=== PATIENT | female | born 1965 | race Caucasian/White ===

== ENCOUNTER → 2020-01-22 | Outpatient (CLI) | payer MEDICARE, OTHER ==
[~2020-01-22] MED LIST: ACID REDUCER 1150 MG PO; ALBU.083IS IH; ALBU90OI INH; ALBU90OI61 INH; ATOR10 PO; BUDE6HFA INH; CALCAVITD PO; CHOL10002 PO; CITA20 PO; CLARITIN10 MG PO; FERR325 PO; FISH1000 PO; FLUSAL2505 IH; Flonase 0.05% N16 GM; HYOS.125 SL; IBUP800 PO; INSDET100 SQ; INSLI100I SC; INSLI100I SUBQ; INSULANPEN; LITH300C PO; LORA10; LOSA25 PO; LOSARTAN-HCTZ1 EAC1 PO; LOSHYD100; MIRT15 PO; MULVITMIND PO; Novolog100 UNIT/2 SC; OMEP40CA12 PO; OMEPRAZOLE MAGN20 MG PO; OXYC5 PO; Omega 3 1,0001 EACH PO; POLY500 PO; RANI150 PO; TIOT18 IH; VENL75ER PO; VITAMIN D32000 UNIT PO
[2020-01-22 19:21] LABS: BASOPHILS ABSOLUTE AUTO 0.07 K/mm3 (0.00-0.23); BASOPHILS PERCENT AUTO 1 % (0-2); EOSINOPHILS ABSOLUTE AUTO 0.02 K/mm3 (0.00-0.68); EOSINOPHILS PERCENT AUTO 0 % (0-6); Hematocrit 42.7 % (33.0-51.0); IMMATURE GRAN ABSOLUTE AUTO 0.03 K/mm3 (0.00-0.10); IMMATURE GRAN PERCENT AUTO 0 % (0-1); LYMPHOCYTES ABSOLUTE AUTO 2.42 K/mm3 (0.84-5.20); LYMPHOCYTES PERCENT AUTO 26 % (21-46); MONOCYTES ABSOLUTE AUTO 0.65 K/mm3 (0.16-1.47); MONOCYTES PERCENT AUTO 7 % (4-13); Mean Corpuscular HGB 30.1 pg (26.0-34.0); Mean Corpuscular HGB Conc 32.8 g/dL (31.5-36.5); Mean Corpuscular Volume 92 fL (80-100); Mean Platelet Volume 10.8 fL (9.1-12.4); NEUTROPHILS ABSOLUTE AUTO 6.04 K/mm3 (1.96-9.15); NEUTROPHILS PERCENT AUTO 66 % (41-73); Platelet Count 225 K/mm3 (150-400); RDW Coefficient Variation 14.1 % (11.7-14.2); RDW Standard Deviation 47.6 fL (35.1-46.3); Red Blood Cell Count 4.65 M/mm3 (3.80-5.20); White Blood Cell Count 9.23 K/mm3 (4.00-11.30)
[2020-01-22 19:30] LABS: Anion Gap 5 mmol/L (6-16); Blood Urea Nitrogen 7 mg/dL (8-24); Bun/Creatinine Ratio 10.7 (12.0-20.0); CO2, Blood 28 mmol/L (21-32); Calcium, Blood 8.4 mg/dL (8.5-10.1); Chloride, Blood 101 mmol/L (98-108); Creatinine, Blood 0.65 mg/dL (0.40-1.00); Glomerular Filtration Rate >60 (60-); Glucose, Blood 406 mg/dL (70-99); Potassium, Blood 4.2 mmol/L (3.5-5.5); Sodium, Blood 134 mmol/L (136-145)
[2020-01-22 19:34] LABS: Percent Saturation 21.8 % (15.0-50.0)
== END | disposition home or self-care (01) ==
LOC: LAB SHORT 19:15 → LAB 19:15
PROVIDERS: Physician Assistant
DX: E87.1 Hypo-osmolality and hyponatremia (principal); D50.9 Iron deficiency anemia, unspecified
CPT/HCPCS: 80048; 82728; 83540; 83550; 85025

== ENCOUNTER 2022-06-26 08:50 | Day surgery (SDC) | payer MEDICARE, OTHER ==
[~2022-06-26] VITALS: Ht 162.6 cm; Wt 71.8 kg
[~2022-06-26 08:50] MED LIST changes: +CHLO25 PO; +Fibercon625 MG PO; +MONT10T PO; +PRAZ1 PO; +TRELEGY ELLIPT1 EAC1
--- NOTE | 2022-06-26 09:22 | NUR ---
06/26/22 0922 Shannan Maria CALL LIGHT WITHIN REACH.TETRACAINE IN RIGHT EYE AT 0911 AND PLEDGETT AT 0912
== END 2022-06-26 10:38 | disposition home or self-care (01) ==
LOC: ORSCSDS 08:50
PROVIDERS: Student in an Organized Health Care Education/Training Program
PROC: 08DJ3ZZ Extraction of Right Lens, Percutaneous Approach (ICD-10-PCS; principal; 2022-06-26 10:15)
DX: H25.13 Age-related nuclear cataract, bilateral (principal); E11.3299 Type 2 diabetes mellitus with mild nonproliferative diabetic retinopathy without macular edema, unspecified eye; K74.60 Unspecified cirrhosis of liver; J44.9 Chronic obstructive pulmonary disease, unspecified; F32.A Depression, unspecified; E11.9 Type 2 diabetes mellitus without complications; I10 Essential (primary) hypertension; G47.33 Obstructive sleep apnea (adult) (pediatric); F17.210 Nicotine dependence, cigarettes, uncomplicated; Z79.4 Long term (current) use of insulin; Z79.899 Other long term (current) drug therapy
CPT/HCPCS: 82947; J2250; J3010; J7040; V2632

== ENCOUNTER 2022-07-03 15:03 | Inpatient (IN) | payer MEDICARE, OTHER ==
[~2022-07-03] VITALS: Ht 162.6 cm; Wt 69.2 kg
[2022-07-03 16:13] LABS: BASOPHILS ABSOLUTE AUTO 0.05 K/mm3 (0.00-0.23); BASOPHILS PERCENT AUTO 0 % (0-2); EOSINOPHILS ABSOLUTE AUTO 0.17 K/mm3 (0.00-0.68); EOSINOPHILS PERCENT AUTO 1 % (0-6); Hematocrit 42.5 % (33.0-51.0); IMMATURE GRAN ABSOLUTE AUTO 0.12 K/mm3 (0.00-0.10); IMMATURE GRAN PERCENT AUTO 1 % (0-1); LYMPHOCYTES ABSOLUTE AUTO 1.74 K/mm3 (0.84-5.20); LYMPHOCYTES PERCENT AUTO 14 % (21-46); MONOCYTES PERCENT AUTO 6 % (4-13); Mean Corpuscular HGB 31.5 pg (26.0-34.0); Mean Corpuscular HGB Conc 32.9 g/dL (31.5-36.5); Mean Corpuscular Volume 96 fL (80-100); Mean Platelet Volume 10.7 fL (9.1-12.4); NEUTROPHILS ABSOLUTE AUTO 9.85 K/mm3 (1.96-9.15); NEUTROPHILS PERCENT AUTO 77 % (41-73); Platelet Count 214 K/mm3 (150-400); RDW Coefficient Variation 12.7 % (11.7-14.2); RDW Standard Deviation 44.6 fL (35.1-46.3); Red Blood Cell Count 4.44 M/mm3 (3.80-5.20); White Blood Cell Count 12.73 K/mm3 (4.00-11.30)
[2022-07-03 16:17] LABS: Base Excess Venous -26.3 mmol/L; Bicarbonate Venous 7.5 mmol/L (24.0-30.0); PCO2 Venous 27.1 mmHg (38-42); pH Blood Venous 6.95 (7.34-7.37)
[2022-07-03 16:47] LABS: Albumin, Blood 3.8 g/dL (3.4-5.0); Albumin/Globulin Ratio 1.1 (0.8-1.8); Bilirubin, Total 0.6 mg/dL (0.1-1.0); Bun/Creatinine Ratio 26.5 (12.0-20.0); Calcium, Blood 9.5 mg/dL (8.5-10.1); Creatinine, Blood 1.36 mg/dL (0.40-1.00); Globulin, Blood 3.4 g/dL (2.2-4.0); Potassium, Blood 6.1 mmol/L (3.5-5.5); Total Protein, Blood 7.2 g/dL (6.4-8.2)
[2022-07-03 18:25] LABS: Source, Urine Clean Catch
[2022-07-03 19:03] LABS: Glucose, Blood 628 mg/dL (70-99)
[2022-07-03 19:12] LABS: Influenza A, PCR NEGATIVE (NEGATIVE); Influenza B, PCR NEGATIVE (NEGATIVE); Resp Syncytial Virus, PCR NEGATIVE (NEGATIVE); SARS-Cov-2 (COVID-19) PCR, MMC NEGATIVE (NEGATIVE)
[2022-07-03 19:22] LABS: Bilirubin, Urine Neg (Neg); Blood, Urine 4+ (Neg); Glucose Qualitative, Urine 4+ (Neg); Ketones, Urine 4+ (Neg); Leukocyte Esterase, Urine Neg (Neg); Nitrite, Urine Neg (Neg); Protein, Urine 2+ (Neg); Urobilinogen, Urine NORM (Normal)
[2022-07-03 19:33] LABS: Color, Urine Pale Yellow (P-Yellow)
[2022-07-03 19:34] LABS: Appearance, Urine Hazy (Clear)
[2022-07-03 19:36] LABS: Bacteria Mod /hpf; Hyaline Casts 0-2 /lpf (0-2); Mucus Light (0-Heavy); Red Blood Cells, Urine 0-2 /hpf (0-2); Squamous Epithelial Cells Few /hpf (Few); White Blood Cells, Urine 0-2 /hpf (0-5)
[2022-07-03 20:38] LABS: Glucose, Blood 434 mg/dL (70-99)
[2022-07-03 21:09] LABS: Source, Urine Foley catheter
[2022-07-03 21:14] LABS: Bilirubin, Urine Neg (Neg); Blood, Urine 5+ (Neg); Glucose Qualitative, Urine 3+ (Neg); Ketones, Urine 4+ (Neg); Leukocyte Esterase, Urine Neg (Neg); Nitrite, Urine Neg (Neg); Protein, Urine 2+ (Neg); Urobilinogen, Urine NORM (Normal)
[2022-07-03 21:23] LABS: Appearance, Urine Hazy (Clear); Color, Urine Pale Yellow (P-Yellow)
[2022-07-03 21:26] LABS: Amorphous Light (0-Heavy); Bacteria Many /hpf; Hyaline Casts 0-2 /lpf (0-2); Mucus Light (0-Heavy); Squamous Epithelial Cells Rare /hpf (Few); White Blood Cells, Urine 0-2 /hpf (0-5)
[2022-07-03 22:05] LABS: U Amphetamine Screen Not Detected; U Barbituate Screen Not Detected; U Benzodiazapine Screen Not Detected; U Buprenorphine Screen Not Detected; U Cannabinoids Screen DETECTED; U Cocaine Screen Not Detected; U Methadone Screen Not Detected; U Methamphetamine Screen Not Detected; U Opiates Screen Not Detected; U Oxycodone Screen Not Detected; U Phencyclidine Screen Not Detected; U Propoxyphene Screen Not Detected
[2022-07-03 23:07] LABS: Bun/Creatinine Ratio 28.8 (12.0-20.0); Calcium, Blood 8.1 mg/dL (8.5-10.1); Creatinine, Blood 1.11 mg/dL (0.40-1.00); Potassium, Blood 4.7 mmol/L (3.5-5.5)
--- NOTE | 2022-07-03 23:33 | NUR ---
PT ARRIVED TO ICU AT 2200. MD TO BEDSIDE FOR ASSESSMENT. PT IN SINUS TACK WSITH A HR OF 130-140S. PT SLIGHTLY CONFUSED BUT ABLE TO FOLLOW COMMANDS AND NO IMPULSIVE. INULIN GTT BEING MANAGED PER PROTOCOL. BICARB ONE TIME DOSE GIVEN AND GTT STARTED PER ORDER. PT PASSED SWALLOW SCREEN. PT PLEASANT AND ASLEEP IN BED.
--- NOTE | 2022-07-04 04:11 | NUR ---
PT NEURO STATUS WITHOUT CHANGES. CARDIAC IMPROVING. HR DECREASING NOW 100-110S. RESP RATE SLOWING DOWN TO LOW 20S. AWAITING MORNING LAB RESULTS. CBGS TRENDING DOWN. INSULIN GTT AT 3 UNITS/HR. D5 STARTED THIS AM. PT STILL ANXIOUS INTERMITTENTLY BUT ABLE TO CALM PT DOWN WITH DISTRACTION. ALFARO DRAINING WELL, SLIGHT LEAKING PLACED NEW STAT LOCK SO THAT ALFARO DOESNT KINK. PT INDEPENDENT WITH TURNING. VSS. PT COMFORTABLY SLEEPING IN BED. BED ALARM ON.
[2022-07-04 04:55] LABS: BASOPHILS ABSOLUTE AUTO 0.01 K/mm3 (0.00-0.23); BASOPHILS PERCENT AUTO 0 % (0-2); EOSINOPHILS PERCENT AUTO 0 % (0-6); Hematocrit 31.9 % (33.0-51.0); Hemoglobin 11.5 g/dL (11.5-16.0); IMMATURE GRAN ABSOLUTE AUTO 0.03 K/mm3 (0.00-0.10); IMMATURE GRAN PERCENT AUTO 0 % (0-1); LYMPHOCYTES PERCENT AUTO 27 % (21-46); MONOCYTES ABSOLUTE AUTO 0.65 K/mm3 (0.16-1.47); MONOCYTES PERCENT AUTO 9 % (4-13); Mean Corpuscular HGB 31.1 pg (26.0-34.0); Mean Corpuscular HGB Conc 36.1 g/dL (31.5-36.5); NEUTROPHILS ABSOLUTE AUTO 4.61 K/mm3 (1.96-9.15); NEUTROPHILS PERCENT AUTO 63 % (41-73); Platelet Count 156 K/mm3 (150-400); RDW Coefficient Variation 12.5 % (11.7-14.2); RDW Standard Deviation 39.6 fL (35.1-46.3)
[2022-07-04 05:18] LABS: Mean Corpuscular Volume 86 fL (80-100)
[2022-07-04 05:23] LABS: Albumin, Blood 2.8 g/dL (3.4-5.0); Bilirubin, Total 0.5 mg/dL (0.1-1.0); Bun/Creatinine Ratio 29.8 (12.0-20.0); Calcium, Blood 8.3 mg/dL (8.5-10.1); Creatinine, Blood 0.84 mg/dL (0.40-1.00); Globulin, Blood 2.7 g/dL (2.2-4.0); Potassium, Blood 3.7 mmol/L (3.5-5.5); Total Protein, Blood 5.5 g/dL (6.4-8.2)
[2022-07-04] MEDS ORDERED: Insulin Glargine-Yfg SC (06:11)
[2022-07-04] MEDS ORDERED: ALBU3IS INH (06:12)
[2022-07-04] MEDS ORDERED: ATORVASTATIN CA80 M1 PO (06:14)
[2022-07-04] MEDS ORDERED: Fibercon625 MG PO (06:15)
[2022-07-04] MEDS ORDERED: LOSARTAN 100 MG PO (06:16)
[2022-07-04] MEDS ORDERED: MIRT30ST PO (06:18)
[2022-07-04] MEDS ORDERED: OMEP20ER PO (06:19)
--- NOTE | 2022-07-04 10:15 | NUR ---
PT A/O X4. PT SPEAKS IN CHILD-LIKE TONE AND SENTENCES. COOPERATIVE WITH CARE. INSULIN GTT AND D5 BICARB. WILL BE TRANSITIONING TO SLIDING SCALE INSULIN NOW THAT PT TOLERATED BREAKFAST. UPDATED AND ABLE TO SPEAK TO PT ON THE PHONE.
[2022-07-04 10:58] LABS: Bun/Creatinine Ratio 24.3 (12.0-20.0); Calcium, Blood 8.4 mg/dL (8.5-10.1); Creatinine, Blood 0.82 mg/dL (0.40-1.00); Potassium, Blood 3.2 mmol/L (3.5-5.5)
--- NOTE | 2022-07-04 11:58 | NUR ---
CALLED DR. CARRASCO ABOUT POTASSIUM LEVEL. DR. Wolfe ANSWERED AND WILL REVIEW.
--- NOTE | 2022-07-04 17:03 | NUR ---
SUMMARY PT A/O X4. PT IS CHILD-LIKE AT TIMES. MAKES NEEDS KNOWN, SOMETIMES USES CALL LIGHT, SOMETIMES CALLS OUT. OFF INSULIN GTT AND D5 SINCE THIS AM. TOLERATING PO WELL, NO N/V TODAY. PT ABLE TO MOVE HERSELF INDEP IN BED. DOWNGRADED TO MEDICAL STATUS TODAY. PT HAS SPOKEN WITH FAMILY ON THE PHONE TODAY. NO SIGN OF DISTRESS.
[2022-07-04 17:04] LABS: Bun/Creatinine Ratio 18.2 (12.0-20.0); Calcium, Blood 9.1 mg/dL (8.5-10.1); Creatinine, Blood 0.77 mg/dL (0.40-1.00); Potassium, Blood 3.2 mmol/L (3.5-5.5)
[2022-07-04 20:59] LABS: Bun/Creatinine Ratio 20.7 (12.0-20.0); Calcium, Blood 8.8 mg/dL (8.5-10.1); Creatinine, Blood 0.63 mg/dL (0.40-1.00); Potassium, Blood 3.4 mmol/L (3.5-5.5)
--- NOTE | 2022-07-04 21:16 | NUR ---
GAVE REPORT TO NURSE TAKING PT ON MEDICAL FLOOR. TRANSFERED PT AT 2100. 2100 MEDS GIVEN BEFORE TRANSFER. PT VS STABLE.
[2022-07-05 03:34] LABS: Bun/Creatinine Ratio 17.4 (12.0-20.0); Calcium, Blood 9.5 mg/dL (8.5-10.1); Creatinine, Blood 0.63 mg/dL (0.40-1.00); Potassium, Blood 3.6 mmol/L (3.5-5.5)
--- NOTE | 2022-07-05 07:00 | NUR ---
Rn summary: Patient is alert and oriented. Pt is child like but cooperative. Pt has been up to the bathroom a few times for stools. Wearing a pull up. Pt has a stephens cath with ellow urine. Patient hopes to be DC today. Taking fluids well. Has reted well. Call light in reach. Bed alarm on.
[2022-07-05 08:50] LABS: Bun/Creatinine Ratio 14.8 (12.0-20.0); Calcium, Blood 9.4 mg/dL (8.5-10.1); Creatinine, Blood 0.68 mg/dL (0.40-1.00); Potassium, Blood 3.6 mmol/L (3.5-5.5)
[2022-07-05] MEDS ORDERED: BASAGLAR K100 UNIT/1 SC (12:11)
[2022-07-05] MEDS ORDERED: HUMALOG KW100 UNIT/1 SC (12:11)
--- NOTE | 2022-07-05 15:22 | NUR ---
PT DISCHARGED FROM THE UNIT. IVS REMOVED. DISCHARGE INSTRUCTIONS REVIEWED. MEDICATIONS FAXED TO PHARMACY. ALFARO REMOVED AND PT WAS ABLE TO VOID. INSTRUCTED TO FOLLOW UP WITH PRIMARY CARE AND ENDOCRONOLOGY. PT LEFT UNIT VIA WHEEL CHAIR.
== END 2022-07-05 14:05 | disposition home or self-care (01) | DRG 638 ==
LOC: ER 15:03 → ICUE 20:36 → ICUW 20:36 → ICUE 20:47 → MEDS 07-04 21:10
PROVIDERS: Family Medicine Adult Medicine; Physician Assistant; Student in an Organized Health Care Education/Training Program; ADMIT Internal Medicine
DX: E11.10 Type 2 diabetes mellitus with ketoacidosis without coma (principal); E87.1 Hypo-osmolality and hyponatremia; J44.1 Chronic obstructive pulmonary disease with (acute) exacerbation; G93.49 Other encephalopathy; F32.A Depression, unspecified; G47.30 Sleep apnea, unspecified; K74.60 Unspecified cirrhosis of liver; G43.909 Migraine, unspecified, not intractable, without status migrainosus; G47.00 Insomnia, unspecified; F17.200 Nicotine dependence, unspecified, uncomplicated; E86.0 Dehydration; F10.20 Alcohol dependence, uncomplicated; Z79.899 Other long term (current) drug therapy; Z79.4 Long term (current) use of insulin; Z99.81 Dependence on supplemental oxygen; Z90.89 Acquired absence of other organs; Z98.51 Tubal ligation status; Z98.890 Other specified postprocedural states; Z91.018 Allergy to other foods
CPT/HCPCS: 0241U; 36415; 70450; 71045; 74177; 80048; 80053; 81001; 82803; 82947; 83690; 83735; 84100; 84484; 85025; 87086; 93005; 93010; 94640; 94664; 96361; 96374; 96375; 99285-25; A9270; C9113; J1650; J1815; J2060; J2405; J7030; J7040; J7050; J7070; Q9967

== ENCOUNTER 2022-12-18 07:05 | Day surgery (SDC) | payer MEDICARE, OTHER ==
[~2022-12-18] VITALS: Ht 162.6 cm; Wt 69.0 kg
[~2022-12-18 07:05] MED LIST changes: +ALBU3IS INH; +ATORVASTATIN CA80 M1 PO; +BASAGLAR K100 UNIT/1 SC; +HUMALOG KW100 UNIT/1 SC; +Insulin Glargine-Yfg SC; +LOSARTAN 100 MG PO; +MIRT30ST PO; +OMEP20ER PO
[2022-12-18] MEDS ORDERED: TOUJEO MAX300 UNIT/2 INJ (07:38)
--- NOTE | 2022-12-18 07:45 | NUR ---
12/18/22 0745 Shannan Maira CALL LIGHT WITHIN REACH. TETRACAINE IN AT 0735 IN LEFT EYE AND PLEDGETT IN AT 0737
--- NOTE | 2022-12-18 08:58 | NUR ---
12/18/22 0858 JOB ARMENDARIZ LUNGS ARE WHEEZY, PT WAS WHEEZY PRIOR TO SURGERY. PT HAS ASTHMA AND COPD. SHE STATES THAT SHE WILL USE HER UPDRAFT WHEN SHE GOES HOME
== END 2022-12-18 09:03 | disposition home or self-care (01) ==
LOC: ORSCSDS 07:05
PROVIDERS: Student in an Organized Health Care Education/Training Program
PROC: 08DK3ZZ Extraction of Left Lens, Percutaneous Approach (ICD-10-PCS; principal; 2022-12-18 08:30)
DX: E11.36 Type 2 diabetes mellitus with diabetic cataract (principal); H25.12 Age-related nuclear cataract, left eye; F32.A Depression, unspecified; I10 Essential (primary) hypertension; G47.33 Obstructive sleep apnea (adult) (pediatric); K74.60 Unspecified cirrhosis of liver; J44.9 Chronic obstructive pulmonary disease, unspecified; F17.210 Nicotine dependence, cigarettes, uncomplicated; Z79.4 Long term (current) use of insulin; Z79.899 Other long term (current) drug therapy
CPT/HCPCS: 82947; J2001; J2250; J3010; J7040; V2632

== ENCOUNTER 2023-05-19 08:42 | Emergency (ER) | payer MEDICARE, OTHER ==
[~2023-05-19] VITALS: Ht 162.6 cm; Wt 67.6 kg
[~2023-05-19 08:42] MED LIST changes: +BUSPIRONE HCL7.5 M2 PO; +LOSARTAN-HCTZ1 EACH PO; +NOVOLOG100 UNIT/2; +THERA-D2000 UNIT PO; +TOUJEO MAX300 UNIT/2 INJ
[2023-05-19 09:43] LABS: BASOPHILS ABSOLUTE AUTO 0.03 K/mm3 (0.00-0.23); BASOPHILS PERCENT AUTO 1 % (0-2); Hematocrit 40.5 % (33.0-51.0); Hemoglobin 14.3 g/dL (11.5-16.0); LYMPHOCYTES ABSOLUTE AUTO 0.51 K/mm3 (0.84-5.20); LYMPHOCYTES PERCENT AUTO 9 % (21-46); MONOCYTES PERCENT AUTO 10 % (4-13); Mean Corpuscular HGB Conc 35.3 g/dL (31.5-36.5); Mean Corpuscular Volume 88 fL (80-100); Mean Platelet Volume 10.7 fL (9.1-12.4); Platelet Count 171 K/mm3 (150-400); RDW Coefficient Variation 12.8 % (11.7-14.2); RDW Standard Deviation 41.2 fL (35.1-46.3); Red Blood Cell Count 4.61 M/mm3 (3.80-5.20); White Blood Cell Count 5.97 K/mm3 (4.00-11.30)
[2023-05-19 09:53] LABS: EOSINOPHILS PERCENT AUTO 0 % (0-6); IMMATURE GRAN ABSOLUTE AUTO 0.01 K/mm3 (0.00-0.10); IMMATURE GRAN PERCENT AUTO 0 % (0-1); NEUTROPHILS ABSOLUTE AUTO 4.82 K/mm3 (1.96-9.15); NEUTROPHILS PERCENT AUTO 81 % (41-73)
[2023-05-19 10:00] VITALS: BP 177/65
[2023-05-19 10:05] LABS: Albumin, Blood 3.3 g/dL (3.4-5.0); Bilirubin, Total 0.5 mg/dL (0.1-1.0); Bun/Creatinine Ratio 22.3 (12.0-20.0); Calcium, Blood 8.8 mg/dL (8.5-10.1); Creatinine, Blood 0.54 mg/dL (0.40-1.00); Globulin, Blood 3.2 g/dL (2.2-4.0); Total Protein, Blood 6.5 g/dL (6.4-8.2)
[2023-05-19 10:30] LABS: Source, Urine Voided
[2023-05-19 10:36] LABS: Appearance, Urine Clear (Clear); Bilirubin, Urine Neg (Neg); Blood, Urine Neg (Neg); Color, Urine Yellow (P-Yellow); Glucose Qualitative, Urine 3+ (Neg); Ketones, Urine 4+ (Neg); Leukocyte Esterase, Urine Neg (Neg); Nitrite, Urine Neg (Neg); Protein, Urine Neg (Neg); Specific Gravity, Urine 1.025 (1.003-1.022); Urobilinogen, Urine NORM (Normal)
[2023-05-19 11:01] LABS: Influenza A, PCR NEGATIVE (NEGATIVE); Influenza B, PCR NEGATIVE (NEGATIVE); Resp Syncytial Virus, PCR NEGATIVE (NEGATIVE); SARS-Cov-2 (COVID-19) PCR, MMC NEGATIVE (NEGATIVE)
[2023-05-19] MEDS ORDERED: ONDA4ODT MM (11:23)
== END 2023-05-19 11:00 | disposition home or self-care (01) ==
LOC: ER 08:42
PROVIDERS: Emergency Medicine
DX: K52.9 Noninfective gastroenteritis and colitis, unspecified (principal); E10.9 Type 1 diabetes mellitus without complications; G47.30 Sleep apnea, unspecified; I10 Essential (primary) hypertension; J44.9 Chronic obstructive pulmonary disease, unspecified; G47.00 Insomnia, unspecified; F17.210 Nicotine dependence, cigarettes, uncomplicated; Z91.018 Allergy to other foods; Z79.4 Long term (current) use of insulin; Z79.899 Other long term (current) drug therapy
CPT/HCPCS: 0241U; 80053; 81003; 81025; 83690; 85025; 93005; 93010; 96374; 99284-25; J2405; J7030

== ENCOUNTER 2023-05-22 08:52 | Inpatient (IN) | payer MEDICARE, OTHER ==
[~2023-05-22] VITALS: Ht 162.6 cm; Wt 65.8 kg
[~2023-05-22 08:52] MED LIST changes: +ONDA4ODT MM
[2023-05-22 09:46] LABS: Hematocrit 37.6 % (33.0-51.0); Hemoglobin 13.3 g/dL (11.5-16.0); Mean Corpuscular HGB 30.5 pg (26.0-34.0); Mean Corpuscular HGB Conc 35.4 g/dL (31.5-36.5); Mean Corpuscular Volume 86 fL (80-100); Mean Platelet Volume 10.3 fL (9.1-12.4); Platelet Count 178 K/mm3 (150-400); RDW Coefficient Variation 12.5 % (11.7-14.2); RDW Standard Deviation 39.7 fL (35.1-46.3); Red Blood Cell Count 4.36 M/mm3 (3.80-5.20); White Blood Cell Count 7.57 K/mm3 (4.00-11.30)
[2023-05-22 10:11] LABS: BAND PERCENT MAN 21 % (0-8); BASOPHILS ABSOLUTE MAN 0.07 K/mm3 (0.00-0.23); BASOPHILS PERCENT MAN 1 % (0-2); EOSINOPHILS PERCENT MAN 0 % (0-6); LYMPHOCYTES ABSOLUTE MAN 0.83 K/mm3 (0.84-5.20); LYMPHOCYTES PERCENT MAN 11 % (21-46); MONOCYTES ABSOLUTE MAN 1.96 K/mm3 (0.16-1.47); MONOCYTES PERCENT MAN 26 % (4-13); NEUTROPHILS ABSOLUTE MAN 4.69 K/mm3 (1.96-9.15); SEG NEUTROPHILS PERCENT MAN 41 % (41-73); TOTAL CELLS COUNTED 100
[2023-05-22 10:39] LABS: Albumin, Blood 2.7 g/dL (3.4-5.0); Albumin/Globulin Ratio 0.9 (0.8-1.8); Bilirubin, Direct 0.1 mg/dL (0.0-0.3); Bilirubin, Indirect 0.4 mg/dL (0.1-0.7); Bilirubin, Total 0.5 mg/dL (0.1-1.0); Bun/Creatinine Ratio 20.9 (12.0-20.0); Calcium, Blood 8.6 mg/dL (8.5-10.1); Creatinine, Blood 0.48 mg/dL (0.40-1.00); Globulin, Blood 3.1 g/dL (2.2-4.0); Magnesium, Blood 1.9 mg/dL (1.6-2.4); Total Protein, Blood 5.8 g/dL (6.4-8.2)
[2023-05-22 11:07] LABS: Source, Urine Clean Catch
[2023-05-22 11:15] LABS: Bilirubin, Urine Neg (Neg); Blood, Urine Neg (Neg); Glucose Qualitative, Urine Neg (Neg); Ketones, Urine 3+ (Neg); Leukocyte Esterase, Urine Neg (Neg); Nitrite, Urine Neg (Neg); Protein, Urine Neg (Neg); Specific Gravity, Urine 1.005 (1.003-1.022); Urobilinogen, Urine NORM (Normal); pH, Urine 6.5 (5.0-8.0)
[2023-05-22 11:16] LABS: Appearance, Urine Clear (Clear); Color, Urine Yellow (P-Yellow)
[2023-05-22 12:39] LABS: Adenovirus F 40/41 Not Detected (NOT DETECT); Astrovirus Not Detected (NOT DETECT); Campylobacter Sp Not Detected (NOT DETECT); Cryptosporidium Not Detected (NOT DETECT); Cyclospora Cayetanensis Not Detected (NOT DETECT); E. Coli O157 Not Detected (NOT DETECT); Entamoeba Histolytica Not Detected (NOT DETECT); Enteroaggregative E. coli-EAEC Not Detected (NOT DETECT); Enteropathogenic E. coli-EPEC Detected (NOT DETECT); Enterotoxigenic E. coli-ETEC Not Detected (NOT DETECT); Giardia Lamblia Not Detected (NOT DETECT); Norovirus GI/GII Not Detected (NOT DETECT); Plesiomonas Shigelloides Not Detected (NOT DETECT); Rotavirus A Not Detected (NOT DETECT); Salmonella Sp Detected (NOT DETECT); Sapovirus Not Detected (NOT DETECT); Shiga Toxin-prod E. coli-STEC Not Detected (NOT DETECT); Shigella/Enteroin E. coli-EIEC Not Detected (NOT DETECT); Vibrio Cholerae Not Detected (NOT DETECT); Vibrio Sp Not Detected (NOT DETECT); Yersinia Enterocolitica Not Detected (NOT DETECT)
[2023-05-22 14:18] VITALS: BP 126/91
--- NOTE | 2023-05-22 14:36 | NUR ---
PT ARRIVED TO UNIT FROM ER. DENIES PAIN AND NAUSEA AT THIS TIME. IVF AND POTASSIUM INFUSING AT THIS TIME FROM ER. PT GIVEN CALL LIGHT EDUCATED ON USE. PT DENIES FURTHER NEEDS AT THIS TIME AND WILL CALL IF SHE NEEDS ANYTHING.
--- NOTE | 2023-05-22 17:32 | NUR ---
SHIFT SUMMARY NO ACUTE CHANGES SINCE ARRIVAL TO FLOOR. PT ABLE TO INDEPENDENTLY AMBULATE TO BATHROOM. 1 LOOSE STOOL SINCE ARRIVAL TO FLOOR. NO PAIN WHEN NOT HAVING BOWEL MOVEMENTS. REPORTS SOME NAUSEA, MEDICATION PER EMAR. PT VERY ANXIOUS, TEARFUL AT TIMES. PT REFUSED TO TAKE INSULIN PROVIDED BY HOSPITAL AND TOOK 1 UNIT OF HER OWN INSULIN PEN. ATTEMPTED TO EDUCATE PATIENT ON USING MEDICATIONS HERE SO WE CAN SCAN THEM AND TRACK. PT DECLINED EDUCATION AND STATED SHE WILL CONTINUE TO USE HER OWN.
--- NOTE | 2023-05-22 18:32 | NUR ---
PURPLE BIC BULLDOZER PRESS OPERATOR PLACED IN PATIENTS DRAWER, REEDUCATED ON NON SMOKING FACILTY. PT REPORTS SHE WILL NOT SMOKE IN THE ROOM SHE KNOWS THAT OXYGEN IS FLAMMABLE.
[2023-05-22 19:16] VITALS: BP 163/69
[2023-05-23 03:26] VITALS: BP 149/60
[2023-05-23 03:48] LABS: Hematocrit 33.5 % (33.0-51.0); Hemoglobin 12.1 g/dL (11.5-16.0); Mean Corpuscular HGB 30.9 pg (26.0-34.0); Mean Corpuscular HGB Conc 36.1 g/dL (31.5-36.5); Mean Corpuscular Volume 86 fL (80-100); Mean Platelet Volume 10.1 fL (9.1-12.4); Platelet Count 173 K/mm3 (150-400); RDW Coefficient Variation 12.5 % (11.7-14.2); RDW Standard Deviation 38.9 fL (35.1-46.3); Red Blood Cell Count 3.91 M/mm3 (3.80-5.20); White Blood Cell Count 6.77 K/mm3 (4.00-11.30)
[2023-05-23 04:07] LABS: Bun/Creatinine Ratio 7.5 (12.0-20.0); Calcium, Blood 7.5 mg/dL (8.5-10.1); Creatinine, Blood 0.53 mg/dL (0.40-1.00); Potassium, Blood 2.5 mmol/L (3.5-5.5)
--- NOTE | 2023-05-23 04:25 | NUR ---
SHIFT SUMMARY PT HAD MULTIPLE LIQUID STOOLS T/O NIGHT. COMPLAINED OF N/V, VOMITTED TWICE DURING THE NIGHT. MEDICATED PER EMAR. RT SET UP CPAP, PT WORE CPAP ALL NIGHT. ABLE TO AMBULATE TO THE BATHRROM BY SELF. NEED ASST TO GET BACK INTO BED AND PUT CPAP BACK ON. NIGHT TIME DOSE OF INSULIN REFUSED, ORDER OBTAINED TO START HOME REGIMEN OF MORNING LONG ACTING INSULIN. NO OTHER CONCERNS AT THIS TIME. CALL LIGHT WITHIN REACH.
[2023-05-23 05:17] LABS: BASOPHILS PERCENT MAN 0 % (0-2); EOSINOPHILS PERCENT MAN 0 % (0-6); LYMPHOCYTES ABSOLUTE MAN 1.48 K/mm3 (0.84-5.20); LYMPHOCYTES PERCENT MAN 22 % (21-46); MONOCYTES ABSOLUTE MAN 1.15 K/mm3 (0.16-1.47); MONOCYTES PERCENT MAN 17 % (4-13); MYELOCYTE ABSOLUTE MAN 0.13 K/mm3 (0.00-0.00); MYELOCYTE PERCENT MAN 2 % (0-0); NEUTROPHILS ABSOLUTE MAN 3.99 K/mm3 (1.96-9.15); SEG NEUTROPHILS PERCENT MAN 59 % (41-73); TOTAL CELLS COUNTED 100
[2023-05-23 07:29] VITALS: BP 166/72
--- NOTE | 2023-05-23 13:26 | NUR ---
PT REPORTS TOLERATING LUNCH TODAY. SHE REPORTED SLIGHT NAUSEA WHEN STARTING LUNCH THAT QUICKLY RESOLVED. REPORTS FEELING MUCH BETTER AFTER BEING ABLE TO NAP THIS MORNING. MOTHER BROUGHT IN SOME OF HER PERSONAL BELONGINGS WHICH HAS HELPED HER ANXIETY.
[2023-05-23 14:25] VITALS: BP 145/69
--- NOTE | 2023-05-23 17:02 | NUR ---
SHIFT SUMMARY PT REPORTS FEELING BETTER TODAY THAN YESTERDAY, HER NAUSEA HAS IMPROVED AND SHE IS ABLE TO TOLERATE SOME CLEAR LIQUIDS. BOWEL MOVEMENTS HAVE SLOWED DOWN AND SHE DENIES PAIN WITH BOWEL MOVEMENTS. PT IND IN ROOM NO WEAKNESS WITH AMBULATION. SHE REMAINS ANXIOUS, TEARFUL AT TIMES. BUT MOOOD IMPROVED AFTER FAMILY ASH BELONGINGS IN.
[2023-05-23 19:56] VITALS: BP 142/76
[2023-05-24 02:28] VITALS: BP 147/69
[2023-05-24 04:38] LABS: Bun/Creatinine Ratio 3.6 (12.0-20.0); Calcium, Blood 7.8 mg/dL (8.5-10.1); Creatinine, Blood 0.56 mg/dL (0.40-1.00); Potassium, Blood 2.7 mmol/L (3.5-5.5)
[2023-05-24 07:22] VITALS: BP 150/72
[2023-05-24 14:55] VITALS: BP 158/79
--- NOTE | 2023-05-24 16:32 | NUR ---
SHIFT SUMMARY PT RECEIVED ORAL DOSE + IV DOSE OF POTASSIUM TODAY. REPEAT LABS ORDERED. ALERT, ORIENTED, AND INDEPENDENT IN ROOM AND HALLWAY. TOLERATING ADA DIET WITH NO N/V. STILL REPORTING INTERMITTENT DIARRHEA. POSSIBLE DISCHARGE HOME TOMORROW IF LABS ARE WITHIN PARAMETERS. CALL LIGHT WITHIN REACH.
[2023-05-24] MEDS ORDERED: NICO21TP TOP (17:41)
[2023-05-24] MEDS ORDERED: VISBIOME 112.51 EACH PO (17:43)
[2023-05-24] MEDS ORDERED: CIPR500 PO (17:43)
--- NOTE | 2023-05-24 18:19 | NUR ---
DISCHARGE PT EDUCATED ON AND RECEIVED PRINTED DC INSTRUCTIONS. NEW RX LIST FAXED TO [facility] PER PT REQUEST. IV DC'D. TELE BOX RETURNED TO PCU. ALL PERSONAL BELONGINGS GATHERED AND TAKEN HOME BY PT. PT PICKED UP BY MOTHER.
== END 2023-05-24 18:21 | disposition home or self-care (01) | DRG 372 ==
LOC: ER 08:52 → SURS 08:53
PROVIDERS: Student in an Organized Health Care Education/Training Program; ADMIT Family Medicine
DX: A02.0 Salmonella enteritis (principal); E87.1 Hypo-osmolality and hyponatremia; E86.0 Dehydration; E87.6 Hypokalemia; B96.20 Unspecified Escherichia coli [E. coli] as the cause of diseases classified elsewhere; F32.A Depression, unspecified; Z66 Do not resuscitate; J44.9 Chronic obstructive pulmonary disease, unspecified; G47.30 Sleep apnea, unspecified; I10 Essential (primary) hypertension; E10.9 Type 1 diabetes mellitus without complications; K70.31 Alcoholic cirrhosis of liver with ascites; G43.909 Migraine, unspecified, not intractable, without status migrainosus; F17.210 Nicotine dependence, cigarettes, uncomplicated; Z98.51 Tubal ligation status; Z79.899 Other long term (current) drug therapy; Z91.018 Allergy to other foods; Z79.4 Long term (current) use of insulin; Z90.89 Acquired absence of other organs; Z87.39 Personal history of other diseases of the musculoskeletal system and connective tissue; Z98.890 Other specified postprocedural states; Z99.89 Dependence on other enabling machines and devices
CPT/HCPCS: 36415; 74177; 80048; 80076; 81003; 82947; 83690; 83735; 84132; 85025; 87507; 94640; 94660; 94664; 94760; 94762; 96361; 96365-59; 96366; 96367; 96368; 96375; 96376; 99284-25; A9270; G0378; J0744; J1200; J1815; J2405; J2765; J3475; J3480; J7030; J7050; J7120; Q9967

== ENCOUNTER → 2023-09-21 | Outpatient (CLI) | payer MEDICARE, OTHER ==
[~2023-09-21] MED LIST changes: +CIPR500 PO; +NICO21TP TOP; +VISBIOME 112.51 EACH PO
[2023-09-21 17:49] LABS: Adenovirus F 40/41 Not Detected (NOT DETECT); Astrovirus Not Detected (NOT DETECT); Campylobacter Sp Not Detected (NOT DETECT); Cryptosporidium Not Detected (NOT DETECT); Cyclospora Cayetanensis Not Detected (NOT DETECT); E. Coli O157 Not Detected (NOT DETECT); Entamoeba Histolytica Not Detected (NOT DETECT); Enteroaggregative E. coli-EAEC Not Detected (NOT DETECT); Enteropathogenic E. coli-EPEC Not Detected (NOT DETECT); Enterotoxigenic E. coli-ETEC Not Detected (NOT DETECT); Giardia Lamblia Not Detected (NOT DETECT); Norovirus GI/GII Not Detected (NOT DETECT); Plesiomonas Shigelloides Not Detected (NOT DETECT); Rotavirus A Not Detected (NOT DETECT); Salmonella Sp Not Detected (NOT DETECT); Sapovirus Not Detected (NOT DETECT); Shiga Toxin-prod E. coli-STEC Not Detected (NOT DETECT); Shigella/Enteroin E. coli-EIEC Not Detected (NOT DETECT); Vibrio Cholerae Not Detected (NOT DETECT); Vibrio Sp Not Detected (NOT DETECT); Yersinia Enterocolitica Not Detected (NOT DETECT)
== END ==
LOC: LAB 13:45 → LAB SHORT 13:45
PROVIDERS: Family Medicine
DX: K52.9 Noninfective gastroenteritis and colitis, unspecified (principal)
CPT/HCPCS: 87507

== ENCOUNTER → 2024-03-25 | Outpatient (CLI) | payer MEDICARE, OTHER ==
[~2024-03-25] MED LIST changes: +ASPI81CH PO; +CLOP75 PO; +FISH OIL 1,0001 EA10 PO; +GABA300 PO; +LOSA50 PO; +METO50ER PO; +PANT20 PO; +PROBIOTIC1 EA13 PO; -TRELEGY ELLIPT1 EAC1; +TRELEGY ELLIPT1 EAC1 INH; +[UNRECOGNIZED DRUG - CODE] MT
[2024-03-27 23:56] LABS: PANCREATIC ELASTASE,FECAL <10 ug/g (>=100)
== END ==
LOC: LAB 15:07 → LAB SHORT 15:07 → LAB FUT 03-23 11:00
PROVIDERS: Physician Assistant
DX: R63.4 Abnormal weight loss (principal); R10.9 Unspecified abdominal pain; R19.4 Change in bowel habit
CPT/HCPCS: 82653

== ENCOUNTER → 2025-02-26 | Outpatient (CLI) | payer MEDICARE, OTHER ==
[2025-02-26 10:31] LABS: BASOPHILS ABSOLUTE AUTO 0.08 K/mm3 (0.00-0.23); BASOPHILS PERCENT AUTO 1 % (0-2); EOSINOPHILS ABSOLUTE AUTO 0.23 K/mm3 (0.00-0.68); EOSINOPHILS PERCENT AUTO 2 % (0-6); Hematocrit 36.8 % (33.0-51.0); Hemoglobin 12.1 g/dL (11.5-16.0); IMMATURE GRAN ABSOLUTE AUTO 0.04 K/mm3 (0.00-0.10); IMMATURE GRAN PERCENT AUTO 0 % (0-1); LYMPHOCYTES ABSOLUTE AUTO 2.78 K/mm3 (0.84-5.20); LYMPHOCYTES PERCENT AUTO 24 % (21-46); MONOCYTES ABSOLUTE AUTO 0.77 K/mm3 (0.16-1.47); MONOCYTES PERCENT AUTO 7 % (4-13); Mean Corpuscular HGB 26.2 pg (26.0-34.0); Mean Corpuscular HGB Conc 32.9 g/dL (31.5-36.5); Mean Corpuscular Volume 80 fL (80-100); Mean Platelet Volume 10.3 fL (9.1-12.4); NEUTROPHILS PERCENT AUTO 67 % (41-73); Platelet Count 260 K/mm3 (150-400); RDW Coefficient Variation 16.5 % (11.7-14.2); RDW Standard Deviation 47.1 fL (35.1-46.3); Red Blood Cell Count 4.61 M/mm3 (3.80-5.20)
[2025-02-26 10:50] LABS: Albumin, Blood 3.4 g/dL (3.4-5.0); Bilirubin, Total 0.3 mg/dL (0.1-1.0); Bun/Creatinine Ratio 6.4 (12.0-20.0); Calcium, Blood 9.2 mg/dL (8.5-10.1); Creatinine, Blood 0.78 mg/dL (0.40-1.00); Globulin, Blood 3.5 g/dL (2.2-4.0); Potassium, Blood 4.1 mmol/L (3.5-5.5); Thyroid Stimulating Hormone 2.701 uIU/mL (0.360-4.800); Total Protein, Blood 6.9 g/dL (6.4-8.2)
== END | disposition home or self-care (01) ==
LOC: LAB SHORT 10:16 → LAB 10:16
PROVIDERS: Physician Assistant
DX: E10.65 Type 1 diabetes mellitus with hyperglycemia (principal); R53.83 Other fatigue; R55 Syncope and collapse
CPT/HCPCS: 80053; 83880; 84443; 84484; 85025

== ENCOUNTER 2025-09-10 17:02 | Emergency (ER) | payer MEDICARE, OTHER ==
[~2025-09-10] VITALS: Ht 157.5 cm; Wt 59.0 kg
[2025-09-10 17:44] LABS: BASOPHILS ABSOLUTE AUTO 0.08 K/mm3 (0.00-0.23); BASOPHILS PERCENT AUTO 1 % (0-2); EOSINOPHILS ABSOLUTE AUTO 0.28 K/mm3 (0.00-0.68); EOSINOPHILS PERCENT AUTO 2 % (0-6); Hematocrit 45.8 % (33.0-51.0); Hemoglobin 15.0 g/dL (11.5-16.0); IMMATURE GRAN ABSOLUTE AUTO 0.06 K/mm3 (0.00-0.10); IMMATURE GRAN PERCENT AUTO 1 % (0-1); LYMPHOCYTES ABSOLUTE AUTO 4.66 K/mm3 (0.84-5.20); LYMPHOCYTES PERCENT AUTO 40 % (21-46); MONOCYTES ABSOLUTE AUTO 1.03 K/mm3 (0.16-1.47); MONOCYTES PERCENT AUTO 9 % (4-13); Mean Corpuscular HGB Conc 32.8 g/dL (31.5-36.5); Mean Corpuscular Volume 89 fL (80-100); NEUTROPHILS ABSOLUTE AUTO 5.65 K/mm3 (1.96-9.15); NEUTROPHILS PERCENT AUTO 48 % (41-73); NRBC ABSOLUTE 0.00 K/mm3 (0.00-0.02); NRBC Auto 0.0 /100 WBC (0.0-0.2); Platelet Count 258 K/mm3 (150-400); RDW Coefficient Variation 14.7 % (11.7-14.2); RDW Standard Deviation 47.8 fL (35.1-46.3)
[2025-09-10 17:55] LABS: Alanine Aminotransfer (ALT/SGP 28 U/L (12-78); Albumin, Blood 4.0 g/dL (3.4-5.0); Albumin/Globulin Ratio 1.2 (0.8-1.8); Anion Gap 6 mmol/L (3-11); Aspartate Aminotrans (AST/SGOT 23 U/L (12-37); Bilirubin, Total 0.3 mg/dL (0.1-1.0); Blood Urea Nitrogen 6 mg/dL (8-24); CO2, Blood 26 mmol/L (21-32); Calcium, Blood 9.6 mg/dL (8.5-10.1); Chloride, Blood 108 mmol/L (98-108); Creatinine, Blood 0.73 mg/dL (0.40-1.00); Ethanol (Alcohol), Blood, Med <3 mg/dL; Globulin, Blood 3.4 g/dL (2.2-4.0); Glucose, Blood 135 mg/dL (70-99); Potassium, Blood 3.9 mmol/L (3.5-5.5); Sodium, Blood 136 mmol/L (136-145); Total Protein, Blood 7.4 g/dL (6.4-8.2)
[2025-09-10 19:29] LABS: Prothrombin Time Results 11.1 Sec (9.7-11.5)
[2025-09-10 20:49] LABS: Source, Urine Straight Cath
[2025-09-10 20:59] LABS: Bilirubin, Urine Neg (Neg); Color, Urine Yellow (P-Yellow); Glucose Qualitative, Urine Neg (Neg); Ketones, Urine 1+ (Neg); Leukocyte Esterase, Urine Neg (Neg); Protein, Urine 2+ (Neg); Specific Gravity, Urine 1.025 (1.003-1.022); Urobilinogen, Urine NORM (Normal)
[2025-09-10 21:14] LABS: Red Blood Cells, Urine 0-2 /hpf (0-2); White Blood Cells, Urine 0-2 /hpf (0-5)
[2025-09-10 21:45] VITALS: BP 156/76
== END 2025-09-10 22:00 | disposition home or self-care (01) ==
LOC: ER 17:02
PROVIDERS: Student in an Organized Health Care Education/Training Program
DX: G90.81 Serotonin syndrome (principal); T43.215A Adverse effect of selective serotonin and norepinephrine reuptake inhibitors, initial encounter; E10.9 Type 1 diabetes mellitus without complications; J44.9 Chronic obstructive pulmonary disease, unspecified; G47.30 Sleep apnea, unspecified; F17.210 Nicotine dependence, cigarettes, uncomplicated; Z79.82 Long term (current) use of aspirin; Z79.02 Long term (current) use of antithrombotics/antiplatelets; Z79.4 Long term (current) use of insulin; Z79.52 Long term (current) use of systemic steroids; Z79.51 Long term (current) use of inhaled steroids; Z79.899 Other long term (current) drug therapy; Z91.048 Other nonmedicinal substance allergy status
CPT/HCPCS: 51701; 70450; 71045; 80053; 80320; 81001; 82140; 84484; 85025; 85610; 85730; 93005; 93010; 99284-25; A6590